=== PATIENT | female | born 1995 ===

== ENCOUNTER 2017-09-04 16:44 | Emergency (ER) | payer MEDICAID ==
[2017-09-04 17:50] VITALS: BMI 27.4
[2017-09-04 17:55] VITALS: BP 104/73; PULSE 78; RESP 17; TEMP 98.1; O2SAT 100
[2017-09-04 18:56] LABS: HCG,QUALITATIVE URINE NEGATIVE (NEGATIVE); SQUAMOUS EPITHIAL 1 /hpf (0-5); URINE BILIRUBIN NEGATIVE (NEGATIVE); URINE BLOOD 2+ (NEGATIVE); URINE CLARITY Clear (Clear); URINE COLOR Yellow (YELLOW); URINE GLUCOSE (UA) NORMAL (Normal); URINE LEUKOCYTE ESTERASE NEG Leu/uL (Negative); URINE PROTEIN NEGATIVE (NEGATIVE); URINE UROBILINOGEN NORMAL mg/dL (0.2-1.0)
--- NOTE | 2017-09-04 19:08 | C.PDOC ---
History Of Present Illness 22 y/o female presents to ED for evaluation of irregular menses since 06/2017 and requesting test. Patient states she is unsure if she is and reports vaginal bleeding for 2 days with associated low abdominal cramping. Patient states she is unsure if it is her menses or an abnormal , denies fever, chills, sore throat or recent illness, cough, N/V/D, back pain, UTI sx, vaginal irritation or discharges. Ambulate to Ed for evaluation, not in any apparent distress. Time Seen by Provider: 09/04/17 17:58 Chief Complaint (Nursing): Female Genitourinary History Per: Patient History/Exam Limitations: no limitations Onset/Duration Of Symptoms: Days Current Symptoms Are (Timing): Still Present Quality Of Discomfort: Cramping Past Medical History Reviewed: Historical Data, Nursing Documentation, Vital Signs Vital Signs: Last Vital Signs Temp 98.1 F 09/04/17 17:54 Pulse 78 09/04/17 17:54 Resp 17 09/04/17 17:54 BP 104/73 09/04/17 17:54 Pulse Ox 100 09/04/17 20:22 - Medical History PMH: No Chronic Diseases Surgical History: No Surg Hx Family History: States: No Known Family Hx - Social History Hx Alcohol Use: No Hx Substance Use: No - Immunization History Hx Tetanus Toxoid Vaccination: No Hx Influenza Vaccination: No Hx Pneumococcal Vaccination: No Review Of Systems Constitutional: Negative for: Fever, Chills Gastrointestinal: Positive for: Abdominal Pain. Negative for: Nausea, Vomiting Genitourinary: Positive for: Vaginal Bleeding. Negative for: Dysuria Skin: Negative for: Rash Physical Exam - Physical Exam Appears: Well, Non-toxic, No Acute Distress Skin: Normal Color, Warm, Dry, No Rash Eye(s): bilateral: PERRL Nose: No Flaring Oral Mucosa: Moist Throat: No Erythema, No Drooling Neck: Trachea Midline, Supple Cardiovascular: Rhythm Regular Respiratory: No Decreased Breath Sounds, No Accessory Muscle Use, No Stridor, No Wheezing Gastrointestinal/Abdominal: Soft, Tenderness (mild suprapubic tenderness), No Distention, No Guarding, No Rebound Back: No CVA Tenderness Pelvic: Other (refused, menstrual period now) Extremity: Normal ROM, No Pedal Edema, No Deformity, No Swelling Neurological/Psych: Oriented x3, Normal Speech ED Course And Treatment - Laboratory Results Urine POC: Negative O2 Sat by Pulse Oximetry: 100 (RA) Pulse Ox Interpretation: Normal Progress Note: On re-evaluation, pt is afebrile, hemodynamicaly stable. non- toxic. Tolerate Po well in ED. Neck: Supple, (-) meningeal sign. Lungs: CTA B/L , BS equal B/L. Abd: benign, (-) guarding, (-) rebound. Back: (-) CVA tenderness. UA results review -normal study. preg (-). Pt has clinical findings c/w irregular menstrual period . Pt advised. ref. to f/u with DIRECTOR APPAREL in 2-3 days for re-eval. return to ED if any worsening or new changes. Disposition Counseled Patient/Family Regarding: Studies Performed, Diagnosis, Need For Followup - Disposition [facility] Disposition: HOME/ ROUTINE Disposition Time: 18:50 Condition: STABLE Additional Instructions: Follow up with DIRECTOR APPAREL in 2-3 days for re-evaluation. return if any worsening or new changes. Instructions: Menstrual Cramps Forms: [employer] (Arabic) Print Language: WELSH - Clinical Impression Clinical Impression: Menstrual periods irregular - PA / PROPERTY MANAGEMENT INTERN / Resident Statement MD/DO has reviewed & agrees with the documentation as recorded. - Scribe Statement The provider has reviewed the documentation as recorded by the Penelope Xavier All medical record entries made by the Penelope were at my direction and personally dictated by me. I have reviewed the chart and agree that the record accurately reflects my personal performance of the history, physical exam, medical decision making, and the department course for this patient. I have also personally directed, reviewed, and agree with the discharge instructions and disposition.
== END 2017-09-04 19:17 | disposition home or self-care (01) ==
LOC: C.ER 16:44
DX: N92.6 Irregular menstruation, unspecified (principal)